=== PATIENT | male | born 1995 | race Caucasian/White ===

== ENCOUNTER 2022-04-25 18:12 | Emergency (ER) | payer OTHER, SELFPAY ==
[2022-04-25 18:30] VITALS: BP 139/107; PULSE 75; RESP 20; TEMP 37.1; O2SAT 100
--- NOTE | 2022-04-25 19:11 | ED.WOUNDLAC ---
HPI - Wound/Laceration General Chief Complaint: Wound/Laceration Stated Complaint: Cut off top portion of left middle finger Time Seen by Provider: 04/25/22 18:55 Source: patient Mode of arrival: ambulatory Limitations: no limitations History of Present Illness HPI narrative: 27-year-old male presents with skin/nail avulsion left middle finger. Cut himself at work. 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 Bleeding controlled on arrival. Range of motion distal neurovascularly intact. All systems reviewed and negative except as noted above. Related Data Home Medications Medication Instructions Recorded Confirmed No Home Medications 04/25/22 04/25/22 Allergies Allergy/AdvReac Type Severity Reaction Status Date / Time No Known Allergies Allergy Verified 04/25/22 18:36 Review of Systems Review of Systems: CONSTITUTIONAL: Denies fever, chills, or sweats. EYES: Denies visual changes, redness, or discharge. ENT: Denies rhinorrhea, congestion, sore throat, or otalgia. CARDIOVASCULAR: Denies chest pain, palpitations, or edema. RESPIRATORY: Denies cough or dyspnea. GASTROINTESTINAL: Denies abdominal pain, nausea, vomiting, or diarrhea. GENITOURINARY: Denies dysuria or hematuria. SKIN: Reports laceration left middle finger. MUSCULOSKELETAL: Denies back pain, joint pain, or myalgia. NEUROLOGIC: Denies headache, numbness, or weakness. PSYCHIATRIC: Denies anxiety or depression. All other systems reviewed are negative, except as documented in HPI. PMFSH Comments At time of signature, agree with nursing past medical, surgical, social and family history. There is no relevant family history pertinent to the presenting complaint. Exam Narrative: GENERAL: This is a well-nourished, well-developed patient, in no apparent distress. HEAD: normocephalic, atraumatic. EYES: PERRL. Sclera clear/white. Vision is grossly intact. EARS: External ears normal NOSE: External nose normal NECK: Neck supple, non-tender without lymphadenopathy, masses or thyromegaly. CARDIOVASCULAR: Regular rate and rhythm without murmurs, gallops, or rubs. RESPIRATORY: Clear to auscultation. Breath sounds equal bilaterally. No wheezes, rales, or rhonchi. SKIN: warm, Dry, with no suspicious lesions or rash, good texture and turgor. Partial nail, skin avulsion to left middle finger. Scant bleeding noted. NEURO: awake, alert, and oriented to person, place and time. There were no obvious focal neurologic abnormalities. EXTREMITIES: No joint tenderness, effusion, or edema noted. Extrem: Hand/finger images: 1. Skin/partial nail avulsion. Course Course Level of Care: Express Care Visit Vital Signs Vital signs: Vital Signs Temperature 37.1 C 04/25/22 18:30 Pulse Rate 75 04/25/22 18:30 Respiratory Rate 20 04/25/22 18:30 Blood Pressure 139/107 H 04/25/22 18:30 Pulse Oximetry 100 04/25/22 18:30 Oxygen Delivery Room Air 04/25/22 18:30 Temperature 37.1 C 04/25/22 18:30 Pulse Rate 75 04/25/22 18:30 Respiratory Rate 20 04/25/22 18:30 Blood Pressure 139/107 H 04/25/22 18:30 Pulse Oximetry 100 04/25/22 18:30 Oxygen Delivery Room Air 04/25/22 18:30 Reviewed Procedures Laceration Laceration 1: Date: 04/25/22 Time: 19:10 Site: hand Side (If applicable): left (Middle finger) Size (cm): 1 Description: other (Skin/partial nail avulsion) Local Anesthetic: none ====== Skin Level ====== ====== Subcutaneous Layer ====== ====== Muscle Layer ====== ====== Tendon Layer ====== Dressing: Surgicel, tube gauze. MDM - Wound/Laceration MDM Narrative Medical decision making narrative: Patient is aware of diagnosis, understands and agrees to treatment plan. Anticipatory guidance given. Patient agrees to follow-up as directed and is aware of reasons to seek care at the emergency department. Portions of this record may have been created with voice recognition [employer]
== END 2022-04-25 19:23 | disposition home or self-care (01) ==
PROVIDERS: Emergency Provider Nurse Practitioner Family
DX: S61.303A Unspecified open wound of left middle finger with damage to nail, initial encounter (principal); W45.8XXA Other foreign body or object entering through skin, initial encounter; Y99.0 Civilian activity done for income or pay
CPT/HCPCS: 99212; G0463

== ENCOUNTER 2024-07-24 10:37 | Emergency (ER) | payer OTHER, SELFPAY ==
--- NOTE | ~2024-07-24 | XR_ITS ---
EXAMINATION: XR chest 2V DATE: 07/24/2024 11:42 INDICATION: Cough and fever. TECHNIQUE: Frontal and lateral views of the chest were obtained. COMPARISON: None. FINDINGS: There is no pneumonia, pleural effusion, or pneumothorax. The heart size is normal. IMPRESSION: 1. No acute cardiopulmonary disease. Reviewed, dictated and finalized at location A. [facility]
--- OUTSIDE RECORDS SUMMARY | 2024-07-24 10:39 | XMS_ITS | Clinical Summary ---
Author Organization [facility] Address [facility] [place] [address] Care Team Providers Care Automatic Embroidery Machine Tender Name Role Phone Md, Generic Conversion MD Primary Care Provider Unavailable Allergies No known active allergies Medications No known medications Immunizations Name Administration Dates Next Due Tdap (Boostrix) 06/03/2019 Family History Medical History Relation Comments None Father None Mother Relation Status Comments Father Alive Mother Alive Social History Tobacco Use Types Packs/Day Years Used Date Smoking Tobacco: Never Smokeless Tobacco: Never Alcohol Use Standard Drinks/Week Comments No 0 (1 standard drink = 0.6 oz pur e alcohol) AUDIT-C Answer Date Recorded Frequency of Alcohol Consumption Never 06/03/2019 Average Number of Drinks Not on file 020 Frequency of Binge Drinking Not on file 05/19 Sex and Gender Information Value Date Recorded Sex Assigned at Not on file Legal Sex Male 11:17 PM CROP GRAIN OR LIVESTOCK FARM MANAGER Gender Identity Not on file Sexual Orientation Not on file Last Filed Vital Signs Vital Sign Reading Time Taken Comments Blood Pressure 136/81 06/10/2019 5:52 PM CROP GRAIN OR LIVESTOCK FARM MANAGER Pulse 57 06/10/2019 5:52 PM CROP GRAIN OR LIVESTOCK FARM MANAGER Temperature 36.2 C (97.2 F) 06/10/2019 5:52 PM CROP GRAIN OR LIVESTOCK FARM MANAGER Respiratory Rate 16 06/10/2019 5:52 PM CROP GRAIN OR LIVESTOCK FARM MANAGER Oxygen Saturation 98% 06/10/2019 5:52 PM CROP GRAIN OR LIVESTOCK FARM MANAGER Inhaled Oxygen Concentration - - Weight 81.6 kg (180 lb) 06/10/2019 5:52 PM CROP GRAIN OR LIVESTOCK FARM MANAGER Height 182.9 cm (6') 06/10/2019 5:52 PM CROP GRAIN OR LIVESTOCK FARM MANAGER Body Mass Index 24.41 06/10/2019 5:52 PM CROP GRAIN OR LIVESTOCK FARM MANAGER Plan of Treatment Health Maintenance Due Date Last Done Comments Annual Physical 1999 Hepatitis C 2014 Hepatitis B Vaccines (1 of 3 - 19+ 3-dose series) 2015 COVID-19 Vaccine (1 - 2023-2 5 season) 2024 Influenza Adult (#1) 2024 DTaP, Tdap and Td Vaccines ( 2 - Td or Tdap) 06/03/2029 06/03/2019 HPV Vaccines Aged Out No longer eligi ble based on patient's age to complete this topic Meningococcal B Vaccine Aged Out No l onger eligible based on patient's age to complete this topic Meningococcal Vaccine Aged Out No sushant coral eligible based on patient's age to complete this topic Pneumococcal Vaccine: Pediat rics (0 to 5 Years) and At-Risk Patients (6 to 64 Years) Aged Out No longer eligi ble based on patient's age to complete this topic RSV Immunizations Under 20 Months Aged Out No longer eligible based on patient's age to complete this topic Insurance [employer] Care Teams Automatic Embroidery Machine Tender Relationship Specialty Start Date End Date Paco Jordan MD PCP - General FAMILY MEDICINE SPORTS MEDICINE 06/03/19
--- OUTSIDE RECORDS SUMMARY | 2024-07-24 10:39 | XMS_ITS | Referral Summary ---
Author Organization [address] [address] Care Team Providers Care Alemite Operator Name Role Phone Unknown, Notinfile Primary Care Provider Unavail able Encounters Date Type Department Care Team Description 07/21/2024 3:00 PM RADIOLOGIC TECHNOLOGY TEACHER Office Visit [facility] Medical [facility] Care at [address] [address] Lolis Campuzano PA Influenza A (Primary Dx) 04/29/2024 11:45 AM RADIOLOGIC TECHNOLOGY TEACHER Office Visit [facility] Care at [address] [phone] Jeannie Ansari NP Sore throat (Primary Dx); Thrush; Acute non-recurrent frontal sinusitis; Nausea vomiting and diarrhea from Last 3 Months Allergies No known active allergies Medications benzonatate (TESSALON) 100 mg capsuleIndications :Cough Take 1 capsule (100 mg total) by mouth 3 (three) times a day as needed for cough 42 capsule 02/10/20 Active Additional Information Patient not taking.Reported on 07/21/2024 ondansetron ODT (ZOFRAN-ODT) 4 mg disintegrating tabletIndications: Nausea vomiting and diarrhea Take 1 tablet (4 mg total) by mouth every 8 (eight) hours as needed for nausea or vomiting 20 tablet 04/29/20 Active Additional Information Patient not taking.Reported on 07/21/2024 Active Problems Problem Noted Date Diagnosed Date 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 10/01/2012 Proteinuria 10/05/2010 Blood in urine 10/05/2010 Henoch-Schonlein purpura 10/05/2010 Social History Tobacco Use Types Packs/Day Years Used Date Smoking Tobacco: Never Sex and Gender Information Value Date Recorded Sex Assigned at Not on file Legal Sex Male 3:19 AM RADIOLOGIC TECHNOLOGY TEACHER Gender Identity Not on file Sexual Orientation Not on file Last Filed Vital Signs Vital Sign Reading Time Taken Comments Blood Pressure 152/85 07/21/2024 3:02 PM RADIOLOGIC TECHNOLOGY TEACHER Pulse 81 07/21/2024 3:02 PM RADIOLOGIC TECHNOLOGY TEACHER Temperature 37.1 C (98.7 F) 07/21/2024 3:02 PM RADIOLOGIC TECHNOLOGY TEACHER Respiratory Rate 16 07/21/2024 3:02 PM RADIOLOGIC TECHNOLOGY TEACHER Oxygen Saturation 95% 07/21/2024 3:02 PM RADIOLOGIC TECHNOLOGY TEACHER Inhaled Oxygen Concentration - - Weight 95.9 kg (211 lb 6.4 oz) 07/21/2024 3:02 P M RADIOLOGIC TECHNOLOGY TEACHER Height 182.9 cm (6' 0.01 ) 07/21/2024 3:02 PM CS T Body Mass Index 28.66 07/21/2024 3:02 PM RADIOLOGIC TECHNOLOGY TEACHER Plan of Treatment Not on file Procedures Procedure Name Priority Date/Time Associated Diagnosis Comments POC INFLUENZA A/B, COVID-19 ANTIGEN Routine 07/21/2024 3:25 PM RADIOLOGIC TECHNOLOGY TEACHER Influenza A POCT RAPID STREP Routine 07/21/2024 3:25 PM RADIOLOGIC TECHNOLOGY TEACHER Influenza A POCT RAPID STREP Routine 04/29/2024 12:0 8 PM RADIOLOGIC TECHNOLOGY TEACHER Sore throat from Last 3 Months Results * (ABNORMAL) POC Influenza A/B, COVID-19 antigen (07/21/2024 3:25 PM RADIOLOGIC TECHNOLOGY TEACHER) Influenza A Ag, POC Positive(A) Negative [facility] Influenza B Ag, POC Negative Negative [facility] COVID-19 Ag POC Presumptive Negative Presumptive Negative, Invalid [facility] Nasal 07/21/2024 3:25 PM RADIOLOGIC TECHNOLOGY TEACHER us Lolis GARZON POINT OF CARE TEST ORDER RADHA Final Result [facility] [place] [address], [facility] * POCT rapid strep A (07/21/2024 3:25 PM RADIOLOGIC TECHNOLOGY TEACHER) Rapid Strep A, POC Negative Negative [facility] Swab 07/21/2024 3:25 PM RADIOLOGIC TECHNOLOGY TEACHER Lolis GARZON POINT OF CARE TEST ORDER RADHA Final [facility] [address] * POCT rapid strep A (04/29/2024 12:08 PM RADIOLOGIC TECHNOLOGY TEACHER) Rapid Strep A, POC Negative Negative Swab 04/29/2024 12:0 8 PM RADIOLOGIC TECHNOLOGY TEACHER Jeannie Ansari NP POINT OF CARE TEST ORDERAB LES Final Result from Last 3 Months Additional Health Concerns Infection Onset Date Last Indicated Influenza, adult 07/21/2024 07/21/2024 Insurance [facility] CHOICE PLUS Care Teams Alemite Operator Relationship Specialty Start Date End Date Unknown, Notinfile PCP - General 02/10/24
--- OUTSIDE RECORDS SUMMARY | 2024-07-24 10:39 | XMS_ITS | Clinical Summary ---
Author Organization [facility] Address [address] [place] [phone] Care Team Providers Care Scrap Sorter Name Role Phone Unknown, Notinfile Primary Care Provider Unavail able Allergies No known active allergies Medications benzonatate [...] Blood in urine 10/05/2010 Henoch-Schonlein purpura 10/05/2010 Encounters Date Type Department Care Team Description 07/21/2024 3:00 PM PICKLE PROCESSOR Office Visit [facility] Care at [address] [phone] Lolis Campuzano PA Influenza A (Primary Dx) 04/29/2024 11:45 AM PICKLE PROCESSOR Office Visit [facility] Medical [facility] Care at [address] [phone] Jeannie Asnari NP Sore throat (Primary Dx); Thrush; Acute non-recurrent frontal sinusitis; Nausea vomiting and diarrhea from Last 3 Months Social History Tobacco Use Types Packs/Day Years Used Date Smoking Tobacco: Never Sex and Gender Information Value Date Recorded Sex Assigned at Not on file Legal Sex Male 3:19 AM PICKLE PROCESSOR Gender Identity Not on file Sexual Orientation Not on file Obstetrics History Last Filed Vital Signs Vital Sign Reading Time Taken Comments Blood Pressure 152/85 07/21/2024 3:02 PM PICKLE PROCESSOR Pulse 81 07/21/2024 3:02 PM PICKLE PROCESSOR Temperature 37.1 C (98.7 F) 07/21/2024 3:02 PM PICKLE PROCESSOR Respiratory Rate 16 07/21/2024 3:02 PM PICKLE PROCESSOR Oxygen Saturation 95% 07/21/2024 3:02 PM PICKLE PROCESSOR Inhaled Oxygen Concentration - - Weight 95.9 kg (211 lb 6.4 oz) 07/21/2024 3:02 P M PICKLE PROCESSOR Height 182.9 cm (6' 0.01 ) 07/21/2024 3:02 PM CS T Body Mass Index 28.66 07/21/2024 3:02 PM PICKLE PROCESSOR Plan of Treatment Health Maintenance Due Date Last Done Comments Depression Screening 1996 Hepatitis C Screening 1996 Varicella Vaccines (1 of 2 - 13+ 2-dose series) 2009 Regular Well Visit/Exam 18-64 2014 Pneumococcal vaccine <65 (1 of 2 - PCV) 2015 Zoster Vaccine (1 of 2) 2015 Influenza Vaccine (#1) 2024 DTaP/Tdap/Td Vaccine (6 - Td or Tdap) 06/03/2029 06/03/2019, 07/19/1997, 1996, Additional history exists Hepatitis B Screening Completed 1996 , 1996, 1996 HPV Vaccines Aged Out No longer eligi ble based on patient's age to complete this topic Procedures Procedure Name Priority Date/Time Associated Diagnosis Comments POC INFLUENZA A/B, COVID-19 ANTIGEN Routine 07/21/2024 3:25 PM PICKLE PROCESSOR Influenza A POCT RAPID STREP Routine 07/21/2024 3:25 PM PICKLE PROCESSOR Influenza A POCT RAPID STREP Routine 04/29/2024 12:0 8 PM PICKLE PROCESSOR Sore throat from Last 3 Months Results * (ABNORMAL) POC Influenza A/B, COVID-19 antigen (07/21/2024 3:25 PM PICKLE PROCESSOR) Influenza A Ag, POC Positive(A) Negative [facility] Influenza B Ag, POC Negative Negative [facility] COVID-19 Ag POC Presumptive Negative Presumptive Negative, Invalid [facility] Nasal 07/21/2024 3:25 PM PICKLE PROCESSOR Lolis GAROZN POINT OF CARE TEST ORDER RADHA Final Result Performing Organization Address [facility] de Phone Number [address] * POCT rapid strep A (07/21/2024 3:25 PM PICKLE PROCESSOR) Rapid Strep A, POC Negative Negative [facility] Swab 07/21/2024 3:25 PM PICKLE PROCESSOR Lolis GARZON POINT OF CARE TEST ORDER RADHA Final Result Performing Organization Address [facility] Phone Number [address] * POCT rapid strep A (04/29/2024 12:08 PM PICKLE PROCESSOR) Pathologist [facility] Rapid Strep A, POC Negative Negative Swab 04/29/2024 12:0 8 PM PICKLE PROCESSOR Jeannie Ansari ACCREDITED PHARMACY TECHNICIAN POINT OF CARE TEST ORDERAB LES Final Result from Last 3 Months Additional Health Concerns Infection Onset Date Last Indicated Influenza, adult 07/21/2024 07/21/2024 Insurance [facility] H[facility]PPO Address: [facility] [id number] [place] [address] Care Teams Scrap Sorter Relationship Specialty Start Date End Date Unknown, Notinfile PCP - General 02/10/24
[2024-07-24 10:40] VITALS: BP 143/95; PULSE 77; RESP 18; TEMP 36.2; O2SAT 99
--- OUTSIDE RECORDS SUMMARY | 2024-07-24 11:30 | XMS_ITS | Referral Summary ---
Author Organization [address] [address] Care Team Providers Care Drapery Seamstress Name Role Phone Unknown, Notinfile Primary Care Provider Unavail able Encounters Date Type Department Care Team Description 07/21/2024 3:00 PM TRIAL MANAGER Office Visit [facility] Medical [facility] Care at [address] [phone] Lolis Campuzano PA Influenza A (Primary Dx) 04/29/2024 11:45 AM TRIAL MANAGER Office Visit [facility] Care at [address] [phone] Jeannie Ansari NP Sore throat [...] on file Legal Sex Male 3:19 AM TRIAL MANAGER Gender Identity Not on file Sexual Orientation Not on file Last Filed Vital Signs Vital Sign Reading Time Taken Comments Blood Pressure 152/85 07/21/2024 3:02 PM TRIAL MANAGER Pulse 81 07/21/2024 3:02 PM TRIAL MANAGER Temperature 37.1 C (98.7 F) 07/21/2024 3:02 PM TRIAL MANAGER Respiratory Rate 16 07/21/2024 3:02 PM TRIAL MANAGER Oxygen Saturation 95% 07/21/2024 3:02 PM TRIAL MANAGER Inhaled Oxygen Concentration - - Weight 95.9 kg (211 lb 6.4 oz) 07/21/2024 3:02 P M TRIAL MANAGER Height 182.9 cm (6' 0.01 ) 07/21/2024 3:02 PM CS T Body Mass Index 28.66 07/21/2024 3:02 PM TRIAL MANAGER Plan of Treatment Not on file Procedures Procedure Name Priority Date/Time Associated Diagnosis Comments POC INFLUENZA A/B, COVID-19 ANTIGEN Routine 07/21/2024 3:25 PM TRIAL MANAGER Influenza A POCT RAPID STREP Routine 07/21/2024 3:25 PM TRIAL MANAGER Influenza A POCT RAPID STREP Routine 04/29/2024 12:0 8 PM TRIAL MANAGER Sore throat from Last 3 Months Results * (ABNORMAL) POC Influenza A/B, COVID-19 antigen (07/21/2024 3:25 PM TRIAL MANAGER) Influenza A Ag, POC Positive(A) Negative [facility] Influenza B Ag, POC Negative Negative [facility] COVID-19 Ag POC Presumptive Negative Presumptive Negative, Invalid [facility] Nasal 07/21/2024 3:25 PM TRIAL MANAGER us Lolis GARZON POINT OF CARE TEST ORDER RADHA Final Result [facility] [place] [address], [facility] * POCT rapid strep A (07/21/2024 3:25 PM TRIAL MANAGER) Rapid Strep A, POC Negative Negative [facility] Swab 07/21/2024 3:25 PM TRIAL MANAGER Lolis GARZON POINT OF CARE TEST ORDER RADHA Final Result [facility] [address] * POCT rapid strep A (04/29/2024 12:08 PM TRIAL MANAGER) Rapid Strep A, POC Negative Negative Swab 04/29/2024 12:0 8 PM TRIAL MANAGER Jeannie Ansari NP POINT OF CARE TEST ORDERAB LES Final Result from Last 3 Months Additional Health Concerns Infection Onset Date Last Indicated Influenza, adult 07/21/2024 07/21/2024 Insurance [facility] CHOICE PLUS Care Teams Drapery Seamstress Relationship Specialty Start Date End Date Unknown, Notinfile PCP - General 02/10/24
--- OUTSIDE RECORDS SUMMARY | 2024-07-24 11:30 | XMS_ITS | Clinical Summary ---
Author Organization [facility] Address [address] [place] [phone] Care Team Providers Care Chute Feeder Name Role Phone Unknown, Notinfile Primary Care [...] Department Care Team Description 07/21/2024 3:00 PM SUPERVISOR DATA PROCESSING Office Visit [facility] Medical [facility]venient Care at [address] [phone] Lolis Campuzano PA Influenza A (Primary Dx) 04/29/2024 11:45 AM SUPERVISOR DATA PROCESSING Office Visit [facility] Medical [facility] Convenient Care at [address] [phone] Jeannie Ansari NP Sore throat (Primary Dx); Thrush; Acute non-recurrent frontal sinusitis; Nausea vomiting and diarrhea from Last 3 Months Social History Tobacco Use Types Packs/Day Years Used Date Smoking Tobacco: Never Sex and Gender Information Value Date Recorded Sex Assigned at Not on file Legal Sex Male 3:19 AM SUPERVISOR DATA PROCESSING Gender Identity Not on file Sexual Orientation Not on file Obstetrics History Last Filed Vital Signs Vital Sign Reading Time Taken Comments Blood Pressure 152/85 07/21/2024 3:02 PM SUPERVISOR DATA PROCESSING Pulse 81 07/21/2024 3:02 PM SUPERVISOR DATA PROCESSING Temperature 37.1 C (98.7 F) 07/21/2024 3:02 PM SUPERVISOR DATA PROCESSING Respiratory Rate 16 07/21/2024 3:02 PM SUPERVISOR DATA PROCESSING Oxygen Saturation 95% 07/21/2024 3:02 PM SUPERVISOR DATA PROCESSING Inhaled Oxygen Concentration - - Weight 95.9 kg (211 lb 6.4 oz) 07/21/2024 3:02 P M SUPERVISOR DATA PROCESSING Height 182.9 cm (6' 0.01 ) 07/21/2024 3:02 PM CS T Body Mass Index 28.66 07/21/2024 3:02 PM SUPERVISOR DATA PROCESSING Plan of Treatment Health Maintenance Due Date [...] A/B, COVID-19 ANTIGEN Routine 07/21/2024 3:25 PM SUPERVISOR DATA PROCESSING Influenza A POCT RAPID STREP Routine 07/21/2024 3:25 PM SUPERVISOR DATA PROCESSING Influenza A POCT RAPID STREP Routine 04/29/2024 12:0 8 PM SUPERVISOR DATA PROCESSING Sore throat from Last 3 Months Results * (ABNORMAL) POC Influenza A/B, COVID-19 antigen (07/21/2024 3:25 PM SUPERVISOR DATA PROCESSING) Influenza A Ag, POC Positive(A) Negative [facility] Influenza B Ag, POC Negative Negative [facility] COVID-19 Ag POC Presumptive Negative Presumptive Negative, Invalid [facility] Nasal 07/21/2024 3:25 PM SUPERVISOR DATA PROCESSING Lolis GARZON POINT OF CARE TEST ORDER RADHA Final Result Performing Organization Address [facility] de Phone Number [address] * POCT rapid strep A (07/21/2024 3:25 PM SUPERVISOR DATA PROCESSING) Rapid Strep A, POC Negative Negative [facility] Swab 07/21/2024 3:25 PM SUPERVISOR DATA PROCESSING Lolis GARZON POINT OF CARE TEST ORDER RADHA Final Result Performing Organization Address [facility] Phone Number [address] * POCT rapid strep A (04/29/2024 12:08 PM SUPERVISOR DATA PROCESSING) Pathologist [facility] Rapid Strep A, POC Negative Negative Swab 04/29/2024 12:0 8 PM SUPERVISOR DATA PROCESSING Jeannie Ansari SANDWICH BOARD CARRIER POINT OF CARE TEST ORDERAB LES Final Result from Last 3 Months Additional Health Concerns Infection Onset Date Last Indicated Influenza, adult 07/21/2024 07/21/2024 Insurance [facility] CHOICE PLUS [facility] HMO/PPO Address: [facility] [id number] [place] [address] Care Teams Chute Feeder Relationship Specialty Start Date End Date Unknown, Notinfile PCP - General 02/10/24
--- OUTSIDE RECORDS SUMMARY | 2024-07-24 11:30 | XMS_ITS | Clinical Summary ---
Author Organization [facility] Address [facility] [place] [address] Care Team Providers Care Concrete Plant Laborer Name Role Phone Md, Generic Conversion MD [...] on file Legal Sex Male 11:17 PM STATISTICAL MACHINE MECHANIC Gender Identity Not on file Sexual Orientation Not on file Last Filed Vital Signs Vital Sign Reading Time Taken Comments Blood Pressure 136/81 06/10/2019 5:52 PM STATISTICAL MACHINE MECHANIC Pulse 57 06/10/2019 5:52 PM STATISTICAL MACHINE MECHANIC Temperature 36.2 C (97.2 F) 06/10/2019 5:52 PM STATISTICAL MACHINE MECHANIC Respiratory Rate 16 06/10/2019 5:52 PM STATISTICAL MACHINE MECHANIC Oxygen Saturation 98% 06/10/2019 5:52 PM STATISTICAL MACHINE MECHANIC Inhaled Oxygen Concentration - - Weight 81.6 kg (180 lb) 06/10/2019 5:52 PM STATISTICAL MACHINE MECHANIC Height 182.9 cm (6') 06/10/2019 5:52 PM STATISTICAL MACHINE MECHANIC Body Mass Index 24.41 06/10/2019 5:52 PM STATISTICAL MACHINE MECHANIC Plan of Treatment Health Maintenance Due Date [...] Insurance [employer] Care Teams Concrete Plant Laborer Relationship Specialty Start Date End Date Paco Jordan MD PCP - General FAMILY MEDICINE SPORTS MEDICINE 06/03/19
[2024-07-24] MEDS: SODIUM CHLORIDE 0.9% IV 1,000 ML 999 ML IV CONT (11:56)
[2024-07-24] MEDS: ONDANSETRON INJ 4 MG/2 ML VIAL IV PUSH (11:56)
[2024-07-24 12:05] LABS: Basophils Percent Auto 0.8 % (0.2-1.2); Hematocrit 51.2 % (42.0-52.0); Hemoglobin 17.4 g/dL (14.0-18.0); Immature Granulocyte Absolute 0.02 K/mm3 (0.00-0.031); Immature Granulocyte Percent A 0.5 % (0-0.5); Lymphocytes Percent Auto 38.3 % (18.3-44.2); Mean Corpuscular Hemoglobin 29.1 pg (26-34); Mean Corpuscular Volume 85.8 fl (80-100); Monocytes Absolute Auto 0.7 K/mm3 (0.1-0.6); Monocytes Percent Auto 19.7 % (2.6-8.5); Neutrophils Absolute Auto 1.5 K/mm3 (1.3-6.7); Neutrophils Percent Auto 40.7 % (45.5-73.1); Platelet Count Result 185 k/mm3 (150-375); Red Blood Count 5.97 M/mm3 (4.6-6.20); Red Cell Distribution Width 12.5 % (11.5-14.5); White Blood Count 3.7 K/mm3 (4.5-10.0)
--- NOTE | 2024-07-24 12:06 | ED.GENADULT ---
HPI - General Adult General Chief complaint: Unspecified Stated complaint: Flu A not getting better Time Seen by Provider: 07/24/24 11:11 Source: patient and RN notes reviewed Mode of arrival: ambulatory Limitations: no limitations History of Present Illness HPI narrative: This is a 29 year old male who presents for evaluation of nausea, vomiting and diarrhea. He states he developed symptoms of the flu on Friday. He reports initially developing a sore throat . He later developed cough, nausea, vomiting, and diarrhea. He was evaluation on Friday at outside facility where he was diagnosed with influenza. He states that he does not feel any better. He states he has continued to have vomiting and diarrhea. His fever has resolved. He denies chest pain or shortness of breath. He also reports tingling to his toes. Related Data Allergies Allergy/AdvReac Type Severity Reaction Status Date / Time No Known Allergies Allergy Verified 07/24/24 10:48 Review of Systems Constitutional: Constitutional: Reports body ache(s) and Reports chills PMFSH Past Medical History Medical History (Updated 07/24/24 @ 13:14 by Samina Casas MD) Patient denies medical problems Surgical History Surgical History (Updated 07/24/24 @ 13:12 by Samina Casas MD) No pertinent past surgical history Social History Social History (Updated 07/24/24 @ 13:12 by Samina Casas MD) Smoking status: Never smoker Alcohol use details: socially Substance use type: marijuana Exam Narrative: GENERAL: Well-appearing, well-nourished, and in no acute distress. HEAD: Normocephalic, atraumatic EYES: PERRLA and EOMI, conjunctiva clear without discharge EARS: TM's clear bilaterally without erythema or dullness NOSE: Nares clear, no rhinorrhea or epistaxis THROAT:Mucous membranes moist, Oropharynx normal without erythema, exudate, peritonsillar swelling or fluctuance NECK: Supple, without lymphadenopathy or mass RESPIRATORY: No respiratory distress, Airway patent, Respirations non-labored, Clear to auscultation without rales, rhonchi or wheeze HEART: Regular rate and rhythm. No murmur heard. Normal peripheral pulses. ABDOMEN: Soft, nontender, nondistended, normal active bowel sounds. No masses. No rebound or guarding, No organomegaly. EXTREMITIES: No edema, normal strength with full range of motion. SKIN: Warm, dry, normal color without rash NEURO: Alert and oriented x3. CN 2-12 grossly intact. No focal deficits. PSYCH: Normal mood and affect. Course Reevaluation(s) Reevaluation #1: PAtient states he feels better after zofran and IV fluids. He has no other concerns. He will be prescribed zofran for antiemetic. No pneumonia on xray. no sign of severe dehydration. Date: 07/24/24 Time: 13:12 Vital Signs Vital signs: Vital Signs Temperature 97.1 F L 07/24/24 10:40 Pulse Rate 77 07/24/24 10:40 Respiratory Rate 18 07/24/24 10:40 Blood Pressure 143/95 H 07/24/24 10:40 Pulse Oximetry 99 07/24/24 10:40 Oxygen Delivery Room Air 07/24/24 10:40 Temperature 97.6 F 07/24/24 13:36 Pulse Rate 69 07/24/24 13:36 Respiratory Rate 20 07/24/24 13:36 Blood Pressure 140/86 07/24/24 13:36 Pulse Oximetry 98 07/24/24 13:36 Oxygen Delivery Room Air 07/24/24 10:40 Medical Decision Making Vital Signs Vital Signs: Vital Signs Temperature 97.1 F L 07/24/24 10:40 Pulse Rate 77 07/24/24 10:40 Respiratory Rate 18 07/24/24 10:40 Blood Pressure 143/95 H 07/24/24 10:40 Pulse Oximetry 99 07/24/24 10:40 Oxygen Delivery Room Air 07/24/24 10:40 Temperature 97.6 F 07/24/24 13:36 Pulse Rate 69 07/24/24 13:36 Respiratory Rate 20 07/24/24 13:36 Blood Pressure 140/86 07/24/24 13:36 Pulse Oximetry 98 07/24/24 13:36 Oxygen Delivery Room Air 07/24/24 10:40 Lab Data Lab results reviewed: Yes I reviewed the patient's lab results. 07/24/24 11:57 07/24/24 11:57 Labs: Lab Results 07/24/24 Range/Units 11:57 WBC 3.7 L (4.5-10.0) K/mm3 RBC 5.97 (4.6-6.20) M/mm3 Hgb 17.4 (14.0-18.0) g/dL Hct 51.2 (42.0-52.0) % MCV 85.8 (80-100) fl MCH 29.1 (26-34) pg MCHC 34.0 (32-36) g/dl RDW 12.5 (11.5-14.5) % Plt Count 185 (150-375) k/mm3 MPV 11.0 H (7.4-10.4) fl Immature Gran % (Auto) 0.5 (0-0.5) % Neut % (Auto) 40.7 L (45.5-73.1) % Lymph % (Auto) 38.3 (18.3-44.2) % [place] % (Auto) 19.7 H (2.6-8.5) % Eos % (Auto) 0.0 (0-4.4) % Baso % (Auto) 0.8 (0.2-1.2) % Lymph # (Auto) 1.40 (0.9-3.2) K/mm3 [place] # (Auto) 0.7 H (0.1-0.6) K/mm3 Eos # (Auto) 0.0 (0-0.3) K/mm3 Baso # (Auto) 0.0 (0.0-0.1) K/mm3 Abs Immat Gran (auto) 0.02 (0.00-0.031) K/mm3 Absolute Neuts (auto) 1.5 (1.3-6.7) K/mm3 Absolute Nucleated RBC 0.000 (0.0-0.012) K/mm3 Nucleated RBC % 0.0 (0.0-0.2) % Sodium 138 (137-145) mmol/L Potassium 4.4 (3.4-5.0) mmol/L Chloride 99 (98-107) mmol/L Carbon Dioxide 25 (22-30) mmol/L Anion Gap 14 H (4-12) mmol/L BUN 16 (9-20) mg/dL Creatinine 1.09 (0.7-1.3) mg/dL Estim Creat Clear Calc 98 ml/min Estimated GFR > 60 (59 - ) Glucose 95 (65-110) mg/dL Calcium 9.1 (8.4-10.2) mg/dL Total Bilirubin 0.6 (0.2-1.3) mg/dL AST 59 (17-59) U/L ALT 66 H (6-50) U/L Alkaline Phosphatase 123 (38-126) U/L Total Protein 8.0 (6.3-8.2) g/dL Albumin 4.8 (3.5-5.1) g/dL Urine Color Yellow (Yellow) Urine Appearance Cloudy H (Clear) Urine pH 6.0 (5.0-9.0) Ur Specific [place] 1.024 (1.001-1.035) Urine Protein 2+ H (Negative) mg/dL Urine Glucose (UA) Negative (Negative) mg/dL Urine Ketones Trace H (Negative) mg/dL Ur Blood (Man) Negative (Negative) Urine Nitrate Negative (Negative) Urine Bilirubin Negative (Negative) Urine Urobilinogen 0.2 (<2.0) mg/dL Add Ur Microanalysis Reviewed Leukocyte Esterase Rfl Negative (Negative) BING/UL Urine RBC 0-2 (0-2) /hpf Urine WBC 0-5 (0-3) /hpf Ur Squamous Epith Cells Few (Few) /hpf Urine Bacteria None seen /hpf Urine Casts 11-20 Granular Casts Present (None) /lpf Imaging Data Radiologist's impression: ITS Impressions Chest X-Ray 07/24/24 11:45 IMPRESSION: 1. No acute cardiopulmonary disease. Discharge Plan Discharge Clinical Impression: Influenza, Acute viral syndrome, Dehydration Patient Disposition: Home, Self-Care Condition: Stable Instructions: Antibiotic Form, Acute Diarrhea (ED), Viral Syndrome (ED) Patient Language: Uzbek Prescriptions: New ondansetron 4 mg tablet,disintegrating 4 mg PO Q6H PRN (Reason: nausea and vomiting) Qty: 14 0RF Follow-up/Referrals: PHYSICIAN,[employer] [Primary Care Provider] - Ashwin Hilton MD [Physician] -
[2024-07-24 12:22] LABS: Alanine Aminotransferase 66 U/L (6-50); Albumin Level 4.8 g/dL (3.5-5.1); Alkaline Phosphatase 123 U/L (38-126); Anion Gap 14 mmol/L (4-12); Aspartate Amino Transferase 59 U/L (17-59); Bilirubin,Total 0.6 mg/dL (0.2-1.3); Blood Urea Nitrogen 16 mg/dL (9-20); Calcium 9.1 mg/dL (8.4-10.2); Carbon Dioxide 25 mmol/L (22-30); Chloride 99 mmol/L (98-107); Estimated CRCL calculation 98 ml/min; Estimated Glomerular Filt Rate > 60; Glucose 95 mg/dL (65-110); Potassium 4.4 mmol/L (3.4-5.0); Sodium 138 mmol/L (137-145)
[2024-07-24 13:02] LABS: Add Urine Microscopic? YES; Appearance Urine Cloudy (Clear); Bacteria Urine None Seen /hpf; Bilirubin Urine Negative (Negative); Blood Urine Negative (Negative); Color Urine Yellow (Yellow); Glucose Urine UA Negative (Negative); Granular Casts Urine Present /lpf; Ketones Urine Trace mg/dL (Negative); Leukocyte Esterase Ur Negative LEU/UL (Negative); Need Manual Microscopic Reviewed; Nitrate Urine Negative (Negative); Protein Urine 2+ mg/dL (Negative); RBC Urine 0-2 /hpf (0-2); Specific Grav Ur 1.024 (1.001-1.035); Squamous Epithelial Cell Urine Few /hpf (Few); Urobilinogen Urine 0.2 mg/dL (<2.0); WBC Urine 0-5 /hpf (0-3)
[2024-07-24 13:36] VITALS: BP 140/86; PULSE 69; RESP 20; TEMP 36.4; O2SAT 98
== END 2024-07-24 13:38 | disposition home or self-care (01) ==
PROVIDERS: Emergency Provider General Practice
DX: J11.1 Influenza due to unidentified influenza virus with other respiratory manifestations (principal); E86.0 Dehydration
CPT/HCPCS: 36415; 71046; 80053; 81001; 85025; 96361; 96374; 99284; J2405; J7030

== ENCOUNTER 2025-01-26 08:16 | Observation (INO) | payer OTHER, SELFPAY ==
--- NOTE | ~2025-01-26 | MR_ITS ---
EXAMINATION: MR pelvis wo/w con DATE: 01/27/2025 09:21 INDICATION: Left buttock mass TECHNIQUE: Magnetic resonance imaging (MRI) of the pelvis was performed without and with 20 mL Multihance intravenous contrast. Full-field sequences of the pelvis included axial and coronal T2-weighted SS FSE, coronal 2D FIESTA, axial T1-weighted FSPGR, axial dual-echo T1-weighted FSPGR and axial T1 weighted LAVA. Postcontrast sequences included a time course axial T1-weighted LAVA with full- field of view of the pelvis. COMPARISON: CT dated 01/26/2025 FINDINGS: 13.6 x 7.3 x 6.6 cm fusiform enhancing mass within the left gluteus lela muscle belly position at the inferior left buttock. There are small cystic regions within the mass. Musculature of the pelvis and visualized proximal thighs appears otherwise normal and symmetric. Bones are unremarkable with no rmal marrow signal throughout. Bladder prostate and visualized portions of bowels including the appendix are normal. No free fluid in the pelvis. No pathologically enlarged pelvic or inguinal lymphadenopathy. IMPRESSION: 1. 13.6 x 7.3 x 6.6 cm heterogeneously enhancing intramuscular mass within the left gluteus lela muscle belly at the inferior left buttock consistent with neoplasm, highly concerning for malignancy although differential would include benign neoplasm such as schwannoma or peripheral nerve sheath tumor. Recommend orthopedic oncology consultation Reviewed, dictated and finalized at location A.
--- NOTE | ~2025-01-26 | CT_ITS ---
Examination: CTA LE LT Clinical History: lower buttock pain and swelling x2 weeks Technique: Helical images lung bases to feet IV contrast information are not listed in PACS Coronal, sagittal reformats. Multiplanar MIPS CT images acquired with automatic exposure control for dose reduction DLP: 715 mGy-cm Comparison: None Findings: CTA Findings: Common iliac arteries: Patent. External iliac arteries: Patent. Hypogastrics: Patent. CFAs: Patent. SFAs: Patent. Profundas: Patent. Popliteal arteries: Patent. Runoff: Three-vessel runoff bilaterally. Although distal portions poorly seen. Non-CTA findings: No acute abnormality within visualized lower abdomen and pelvis. Large heterogeneous lesion left gluteus lela with patchy peripheral enhancement, central hypodensity, and bright enhancement and/or extravasation inferiorly. Findings discussed via telephone by myself with Terell Montero APRN, at 10:19 AM central time. IMPRESSION: 1. Left gluteus muscle large lesion worrisome for mass, hematoma considered less likely but possible. 2. Active bleed along inferior margin not excluded, though felt to be peripheral soft tissue enhancement. 3. No acute arterial abnormality left leg. Reviewed, dictated and finalized at location R. IMPRESSION: 1. Left gluteus muscle large lesion worrisome for mass, hematoma considered le ss likely but possible. 2. Active bleed along inferior margin not excluded, though felt to be peripher al soft tissue enhancement. 3. No acute arterial abnormality left leg.
[2025-01-26 08:17] VITALS: BP 133/79; PULSE 84; RESP 16; TEMP 36.3; O2SAT 100
--- OUTSIDE RECORDS SUMMARY | 2025-01-26 08:40 | XMS_ITS | Clinical Summary ---
Author Organization [address] [address] Care Team Providers Care Dry Cans Operator Name Role Phone Unknown, Notinfile Primary Care Provider Unavail able Allergies No known active allergies Medications benzonatate (TESSALON) 100 mg capsuleIndications :Cough Take 1 capsule (100 mg total) by mouth 3 (three) times a day as needed for cough 42 capsule 02/10/20 Active Additional Information Patient not taking.Reported on 12/10/2024 ondansetron ODT (ZOFRAN-ODT) 4 mg disintegrating tabletIndications: Nausea vomiting and diarrhea Take 1 tablet (4 mg total) by mouth every 8 (eight) hours as needed for nausea or vomiting 20 tablet 04/29/20 Active Additional Information Patient not taking.Reported on 12/10/2024 Active Problems Problem Noted Date Diagnosed Date 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 10/01/2012 Proteinuria 10/05/2010 Blood in urine 10/05/2010 Henoch-Schonlein purpura 10/05/2010 Encounters Date Type Department Care Team Description 12/10/2024 5:45 PM CDT Office Visit [facility] Care at [address] [address] Jeannie Ansari NP Tick bite of right upper back excluding scapular region, initial encounter (Primary Dx) from Last 3 Months Social History Tobacco Use Types Packs/Day Years Used Date Smoking Tobacco: Never Sex and Gender Information Value Date Recorded Sex Assigned at Not on file 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 Gender Identity Not on file Sexual Orientation Not on file Obstetrics History Last Filed Vital Signs Vital Sign Reading Time Taken Comments Blood Pressure 139/87 12/10/2024 5:34 PM CDT Pulse 91 12/10/2024 5:34 PM CDT Temperature 37.1 C (98.7 F) 12/10/2024 5:34 PM CDT Respiratory Rate 22 12/10/2024 5:34 PM CDT Oxygen Saturation 99% 12/10/2024 5:34 PM CDT Inhaled Oxygen Concentration - - Weight 95.7 kg (211 lb) 12/10/2024 5:34 PM CDT Height 182.9 cm (6') 12/10/2024 5:34 PM CDT Body Mass Index 28.62 12/10/2024 5:34 PM CDT Plan of Treatment Health Maintenance Due Date Last Done Comments Depression Screening 1996 Hepatitis C Screening 1996 Varicella Vaccines (1 of 2 - 13+ 2-dose series) 2009 Regular Well Visit/Exam 18-64 2014 Pneumococcal vaccine <65 (1 of 2 - PCV) 2015 Zoster Vaccine (1 of 2) 2015 HPV Vaccines (1 - 3-dose SCD M series) 2023 Influenza Vaccine (#1) 2025 DTaP/Tdap/Td Vaccine (6 - Td or Tdap) 06/03/2029 06/03/2019, 07/19/1997, 1996, Additional history exists Hepatitis B Screening Completed 1996 , 1996, 1996 Insurance [facility] CHOICE PLUS [facility] HMO/PPO Address: [facility] [address] [place] [address] Care Teams Dry Cans Operator Relationship Specialty Start Date End Date Unknown, Notinfile PCP - General 02/10/24
[2025-01-26 09:50] LABS: Hematocrit 41.5 % (42.0-52.0); Hemoglobin 13.2 g/dL (14.0-18.0); Immature Granulocyte Percent A 0.4 % (0-0.5); Lymphocytes Absolute Auto 2.10 K/mm3 (0.9-3.2); Mean Corpuscular HGB Conc 31.8 g/dl (32-36); Mean Corpuscular Hemoglobin 28.3 pg (26-34); Mean Corpuscular Volume 88.9 fl (80-100); Nucleated Red Blood Cells Absolute Auto 0.000 K/mm3 (0.0-0.012); Nucleated Red Blood Cells Perc 0.0 % (0.0-0.2); Platelet Count Result 322 k/mm3 (150-375); Red Blood Count 4.67 M/mm3 (4.6-6.20); White Blood Count 9.4 K/mm3 (4.5-10.0)
[2025-01-26 09:58] LABS: Estimated CRCL calculation 118 ml/min; Estimated Glomerular Filt Rate > 60
[2025-01-26 10:01] LABS: Alanine Aminotransferase 26 U/L (6-50); Albumin Level 4.1 g/dL (3.5-5.1); Alkaline Phosphatase 119 U/L (38-126); Anion Gap 6 mmol/L (4-12); Aspartate Amino Transferase 29 U/L (17-59); Bilirubin,Total 0.2 mg/dL (0.2-1.3); Blood Urea Nitrogen 7 mg/dL (9-20); Calcium 8.8 mg/dL (8.4-10.2); Carbon Dioxide 28 mmol/L (22-30); Chloride 104 mmol/L (98-107); Creatine Kinase 97 U/L (55-170); Estimated CRCL calculation 131 ml/min; Estimated Glomerular Filt Rate > 60; Glucose 107 mg/dL (65-110); Potassium 4.3 mmol/L (3.4-5.0); Sodium 138 mmol/L (137-145); Total Protein 7.3 g/dL (6.3-8.2)
--- OUTSIDE RECORDS SUMMARY | 2025-01-26 10:02 | XMS_ITS | Clinical Summary ---
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 CHOICE PLUS Care Teams Supervisory Historian Relationship Specialty Start Date End Date Unknown, Notinfile PCP - General 02/10/24
--- OUTSIDE RECORDS SUMMARY | 2025-01-26 10:02 | XMS_ITS | Clinical Summary ---
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 Gender Identity Not on file Sexual Orientation Not on file Last Filed Vital Signs Vital Sign Reading Time Taken Comments Blood Pressure 136/81 06/10/2019 5:52 PM FIRE OBSERVER Pulse 57 06/10/2019 5:52 PM FIRE OBSERVER Temperature 36.2 C (97.2 F) 06/10/2019 5:52 PM FIRE OBSERVER Respiratory Rate 16 06/10/2019 5:52 PM FIRE OBSERVER Oxygen Saturation 98% 06/10/2019 5:52 PM FIRE OBSERVER Inhaled Oxygen Concentration - - Weight 81.6 kg (180 lb) 06/10/2019 5:52 PM FIRE OBSERVER Height 182.9 cm (6') 06/10/2019 5:52 PM FIRE OBSERVER Body Mass Index 24.41 06/10/2019 5:52 PM FIRE OBSERVER Plan of Treatment Health Maintenance Due Date Last Done Comments Annual Physical 1999 Hepatitis C 2014 Hepatitis B Vaccines (1 of 3 - 19+ 3-dose series) 2015 HPV Vaccines (1 - 3-dose SCD M series) 2023 COVID-19 Vaccine (1 - 2023-2 5 season) 2025 DTaP, Tdap and Td Vaccines ( 2 - Td or Tdap) 06/03/2029 06/03/2019 Meningococcal B Vaccine Aged Out No l onger eligible based on patient's age to complete this topic Meningococcal Vaccine Aged Out No sushant coral eligible based on patient's age to complete this topic Pneumococcal Vaccine: Pediat rics (0 to 5 Years) and At-Risk Patients (6 to 49 Years) Aged Out No longer eligi ble based on patient's age to complete this topic RSV Immunizations Under 20 Months Aged Out No longer eligible based on patient's age to complete this topic Insurance [employer] Care Teams Entertainment Agent Relationship Specialty Start Date End Date Paco Jordan MD PCP - General [facility]ILY [facility]IC[facility] SPORTS MEDICINE 06/03/19
--- NOTE | 2025-01-26 10:13 | ED_ITS ---
HPI - Extremity Injury (Lower) General Chief Complaint: Extremity Injury, Lower Stated Complaint: sciatica? Time Seen by Provider: 01/26/25 09:11 Source: patient and RN notes reviewed Mode of arrival: ambulatory Limitations: no limitations History of Present Illness HPI Narrative: 29-year-old male presents [facility] complaining of left lower buttocks pain for approximately 2 weeks. Patient said today's developed shooting pain down his left leg. Patient denies any injuries or falls to his left bottom. Patient reports feeling a firm mass to his left lower buttocks. Patient denies any back pain, redness, swelling, drainage, fevers, bites, chills, nausea vomiting,. Patient tried to get this workup done outpatient through his PCP but his insurance declined imaging. Patient denies any significant past medical history. Related Data Allergies Allergy/AdvReac Type Severity Reaction Status Date / Time No Known Allergies Allergy Verified 01/26/25 13:06 Review of Systems 2 Review of Systems: CONSTITUTIONAL: Denies fever, chills, or sweats. EYES: Denies visual changes, redness, or discharge. ENT: Denies rhinorrhea, congestion, sore throat, or otalgia. CARDIOVASCULAR: Denies chest pain, palpitations, or edema. RESPIRATORY: Denies cough or dyspnea. GASTROINTESTINAL: Denies abdominal pain, nausea, vomiting, or diarrhea. GENITOURINARY: Denies dysuria or hematuria. SKIN: Denies rash or itching. Positive for mass. MUSCULOSKELETAL: Denies back pain, joint pain, or myalgia. Positive for left buttocks pain. NEUROLOGIC: Denies headache, numbness, or weakness. PSYCHIATRIC: Denies anxiety or depression. All other systems reviewed are negative, except as documented in HPI. [facility] Past Medical History Medical History Patient denies medical problems Surgical History Surgical History No pertinent past surgical history Social History Social History Smoking status: Never smoker Alcohol intake: current Alcohol use details: socially Substance use: current Substance use type: marijuana Lack of Transportation: No Lack of Food: Never True Current Housing: I Have Housing Concerned About Future Housing: No Difficulty Paying Gas/Electric Bills: No Difficulty Paying for Meds: No Currently Unemployed: No Education: High School Diploma/GED Difficulty w/ Childcare or Family Care: No Spiritual care concerns: No Comments At the time of my signature, I reviewed and agree with the nursing past medical, surgical, social, and family history. There is no relevant family history pertinent to the patient complaint. Exam 2 Narrative: GENERAL: This is a well-nourished, well-developed adult, in no apparent distress. They are non ill-appearing, nontoxic appearing. HEAD: normocephalic, atraumatic. EYES: Sclera clear/white. Conjunctiva normal. Vision is grossly intact. Extraocular movements intact EARS: External ears normal, Hearing grossly intact. NOSE: External nose normal THROAT: Mucous membranes moist, NECK: Neck supple, CARDIOVASCULAR: Regular rate and rhythm RESPIRATORY: Respiratory rate normal, respiratory effort nonlabored, no respiratory distress SKIN: warm, Dry, intact with no suspicious lesions or rash, good texture and turgor. NEURO: awake, alert, and oriented to person, place and time. There were no obvious focal neurologic abnormalities. EXTREMITIES: Left buttocks: Firm tender mass present to the left lower buttocks. No redness or swelling present. No area of fluctuance, no induration. No drainage. Pedal pulse 2 +and palpable. Neurovascular status intact distal to the mass. No redness, swelling, pain, drainage to the rectum. BACK: Nontender without deformity. No CVA tenderness. Course Course Emergency Course: Portions of this record may have been created with voice recognition software Vital Signs Vital signs: Vital Signs Temperature 97.3 F L 01/26/25 08:17 Pulse Rate 84 01/26/25 08:17 Respiratory Rate 16 01/26/25 08:17 Blood Pressure 133/79 01/26/25 08:17 Pulse Oximetry 100 01/26/25 08:17 Oxygen Delivery Room Air 01/26/25 08:17 Temperature 97.2 F L 01/27/25 04:41 Pulse Rate 80 01/27/25 04:41 Respiratory Rate 17 01/27/25 04:41 Blood Pressure 155/73 H 01/27/25 04:41 Pulse Oximetry 98 01/27/25 04:41 Oxygen Delivery Room Air 01/26/25 20:15 Reviewed MDM - Extremity Injury (Lower) MDM Narrative Medical decision making narrative: Palpable firm mass present to the left lower buttocks. Patient denies any falls or injuries. Possibly hematoma. Obtain lab work and imaging to further assess the mass. CBC with delta change hemoglobin however H and H stable. Chemistry unremarkable. Negative CRP. Radiology and reported the results to me via phone stating CT of left lower extremity shows a mass of the left gluteal region cannot exclude malignancy. Could possibly be hematoma versus malignancy cannot exclude hemorrhage due to increased enhancement of the inferior soft tissue margin likely soft tissue enhancement. No acute arterial abnormality of the left leg. Patient only denies falling or having injury any injuries to his left lower buttocks. No evidence of bruising, redness, swelling, or signs of infection noted. Neurovascular status intact distal to the mass. Stable hemoglobin and hematocrit. This is been going on for the last 2 weeks if not longer patient states, it is unlikely that the patient is hemorrhaging. Called Dr. Martell hospitalist to discuss the case with the patient recommended admission for further evaluation and imaging. Hospitalist recommend getting ortho or surgery on board possible for draining or biopsy to assess for malignancy. Spoke with Dr. Peoples from ortho would recommends ortho oncologist such as Dr. Sharp from [facility] for further evaluation of the mass. Spoke with Dr. Obrien from surgery who has agreed to get on board on the case and will consult to patient and patient. Differential Diagnosis Differential diagnosis: Likely other (Hematoma, extravasation artery, mass) Lab Data Attestation: I reviewed the patient's lab results. 01/27/25 05:17 01/27/25 05:17 Labs: Lab Results 01/26/25 01/26/25 Range/Units 09:38 09:57 WBC 9.4 (4.5-10.0) K/mm3 RBC 4.67 (4.6-6.20) M/mm3 Hgb 13.2 L D (14.0-18.0) g/dL Hct 41.5 L (42.0-52.0) % MCV 88.9 (80-100) fl MCH 28.3 (26-34) pg MCHC 31.8 L (32-36) g/dl RDW 12.9 (11.5-14.5) % Plt Count 322 D (150-375) k/mm3 MPV 9.7 (7.4-10.4) fl Immature Gran % (Auto) 0.4 (0-0.5) % Neut % (Auto) 62.4 (45.5-73.1) % Lymph % (Auto) 22.4 (18.3-44.2) % [place] % (Auto) 9.8 H (2.6-8.5) % Eos % (Auto) 3.9 (0-4.4) % Baso % (Auto) 1.1 (0.2-1.2) % Lymph # (Auto) 2.10 (0.9-3.2) K/mm3 [place] # (Auto) 0.9 H (0.1-0.6) K/mm3 Eos # (Auto) 0.4 H (0-0.3) K/mm3 Baso # (Auto) 0.1 (0.0-0.1) K/mm3 Abs Immat Gran (auto) 0.04 H (0.00-0.031) K/mm3 Absolute Neuts (auto) 5.9 (1.3-6.7) K/mm3 Absolute Nucleated RBC 0.000 (0.0-0.012) K/mm3 Nucleated RBC % 0.0 (0.0-0.2) % Sodium 138 (137-145) mmol/L Potassium 4.3 (3.4-5.0) mmol/L Chloride 104 (98-107) mmol/L Carbon Dioxide 28 (22-30) mmol/L Anion Gap 6 (4-12) mmol/L BUN 7 L D (9-20) mg/dL Creatinine 0.80 0.90 (0.7-1.3) mg/dL Estim Creat Clear Calc 131 118 ml/min Estimated GFR > 60 > 60 (59 - ) Glucose 107 (65-110) mg/dL Calcium 8.8 (8.4-10.2) mg/dL Total Bilirubin 0.2 (0.2-1.3) mg/dL AST 29 (17-59) U/L ALT 26 (6-50) U/L Alkaline Phosphatase 119 (38-126) U/L Total Creatine Kinase 97 (55-170) U/L Total Protein 7.3 (6.3-8.2) g/dL Albumin 4.1 (3.5-5.1) g/dL Imaging Data Radiologist's impression: ITS Impressions Lower Extremity CTA 01/26/25 10:07 IMPRESSION: 1. Left gluteus muscle large lesion worrisome for mass, hematoma considered less likely but possible. 2. Active bleed along inferior margin not excluded, though felt to be peripheral soft tissue enhancement. 3. No acute arterial abnormality left leg. Critical Care Time Critical Care Time Critical Care Time: No Discharge Plan Discharge Clinical Impression: Mass of buttock Patient Disposition: Still a Patient Condition: Stable Time of Disposition: 11:15
--- NOTE | 2025-01-26 12:07 | P.CONGS_ITS ---
Assessment and Plan Assessment and plan (1) Mass of buttock: Code(s): R22.2 - Localized swelling, mass and lump, trunk Status: Acute Assessment and Plan: * The patient has a large left buttock mass that has been gradually increasing in size over the past 6-7 months. He has had difficulty with having outpatient workup due to issues with insurance. He presented today due to worsening left buttock pain that became uncontrolled last night. CTA left lower extremity showed a large left gluteal mass. Although hematoma is on the differential, this seems less likely after examining the lesion and with his presentation without any related trauma or anticoagulation. Other differentials would include other benign or malignant neoplasms. The Hospitalist is admitting the patient and we will defer further workup to the Hospitalist service. We will follow along peripherally for results to determine if there are any surgical needs. (2) Left buttock pain: Code(s): M79.18 - Myalgia, other site Status: Acute Assessment and Plan: * This is the reason for his presentation to the ER. He describes pain in his left buttock centrally at the mass with a sciatic-like shooting sharp and tingling pain down his left leg. Plan I have discussed the patient's case and plan of care with Dr. Obrien. History of Present Illness Consult details Consult date: 01/26/25 Reason for consult: other (Left buttock mass) Requesting physician: Jun Martell MD Narrative: This is a 29-year-old male with no known past medical history, who we have been asked to see in surgical consultation for a left gluteal mass. He reports a gradual increase in size of a small mass on his left buttock for the past 6-7 months. He reports first noticing it about 7 months ago when he sat down in his brother's car. He felt like he sat on something, and felt a bump. At that time, he reports that it was the size of a golf ball. Over the next few months, the mass had slowly enlarged. It eventually started causing pain in is left buttock. More recently, he has noticed intermittent numbness in his left leg. He has developed a sciatic-like pain shooting down his left leg. Due to his progressive symptoms, he went to see his PCP for this problem and they attempted to order imaging as an outpatient. There has been issues with insurance and his imaging was rescheduled for next week. This pain has progressively become worse and was unbearable last night, therefore it prompted him to come into the ED for evaluation. Labs were unremarkable with a normal white blood cell count. CTA of the left lower extremity showed a large left gluteus muscle lesion worrisome for mass, hematoma considered less likely but possible. Active bleed along inferior margin not excluded, though felt to be peripheral soft tissue enhancement. No acute arterial abnormality of the left leg. He is being admitted by the hospitalist for further workup of the left gluteal mass. Our service has been consulted and he is now seen in the ED. Review of Systems 2 Review of Systems: All systems reviewed & are unremarkable except as noted in HPI and below PMFSH Past Medical History Medical History Patient denies medical problems Surgical History Surgical History No pertinent past surgical history Social History Social History Smoking status: Never smoker Alcohol use details: socially Substance use type: marijuana Meds Home Medications and Allergies Home Medications ?Medication ?Instructions ?Recorded ?Confirmed ?Type ondansetron 4 mg disintegrating 4 mg PO Q6H PRN nausea and 07/24/24 Rx tablet vomiting #14 tabs Allergies Allergy/AdvReac Type Severity Reaction Status Date / Time No Known Allergies Allergy Verified 01/26/25 08:33 Vital Signs Vital Signs - 24 hr 01/26/25 08:17 Temperature 97.3 F L Pulse Rate 84 Respiratory Rate 16 Blood Pressure 133/79 Pulse Oximetry 100 Oxygen Delivery Room Air Exam 2 Const: General: comfortable and no acute distress Nutritional Appearance: a verage body habitus Orientation/consciousness: patient oriented x3 HENMT: Head: normocephalic and atraumatic Ears: hearing grossly normal bilaterally Mouth: Yes moist mucous membranes Eyes: General: appearance normal, both eyes and all related structures P upils: Equal, round and reactive pupils present Neck: Neck: normal visual inspection and full ROM Resp: Effort & Inspection: no respiratory distress Auscultation: clear to auscultation bilaterally Cardio: Rate: regular rate Rhythm: regular rhythm Peripheral pulses: P eripheral pulses 2+ throughout GI: Inspection: non-distended GI Palp: Yes Soft to palpation, No Tenderness to palpation present (GI), No Guarding due to palpation present (GI) and No Rebound tenderness present Auscultation: normal bowel sounds Skin: General skin exam: normal color Other: Large 8-9 cm left buttock mass with irregularly-shaped borders, slightly mobile, and slightly soft, but not firm nor fluctuant. Overlying skin appears normal in color with an uneven lobular surface with no bruising, no abnormal visible lesions or discoloration of the skin, and no redness or warmth. Neuro: General: moves all extremities and no focal motor deficits Speech: n ormal speech Motor exam (neuro): 5/5 motor strength present throughout Extrem: General: normal to inspection and no edema Left lower extremity: h ip/thigh Details: normal to inspection, knee Details: normal to inspection, lower leg Details: normal to inspection, ankle Details: normal to inspection and foot Details: normal to inspection, no edema and vascular exam Details: dorsalis pedis pulse present, posterior tibial pulse present and normal capillary refill Psych: Mental Status: mental status grossly normal Attitude: cooperative Insight: Good insight present (Psych) Judgement: Good judgement present (Psych) Results Labs 01/26/25 09:38 01/26/25 09:57 Labs: Abnormal lab results 01/26/25 Range/Units 09:38 Hgb 13.2 L D (14.0-18.0) g/dL Hct 41.5 L (42.0-52.0) % MCHC 31.8 L (32-36) g/dl Carver % (Auto) 9.8 H (2.6-8.5) % Carver # (Auto) 0.9 H (0.1-0.6) K/mm3 Eos # (Auto) 0.4 H (0-0.3) K/mm3 Abs Immat Gran (auto) 0.04 H (0.00-0.031) K/mm3 BUN 7 L D (9-20) mg/dL Diabetes panel 01/26/25 01/26/25 Range/Units 09:38 09:57 Sodium 138 (137-145) mmol/L Potassium 4.3 (3.4-5.0) mmol/L Chloride 104 (98-107) mmol/L Carbon Dioxide 28 (22-30) mmol/L BUN 7 L D (9-20) mg/dL Creatinine 0.80 0.90 (0.7-1.3) mg/dL Glucose 107 (65-110) mg/dL Calcium 8.8 (8.4-10.2) mg/dL AST 29 (17-59) U/L ALT 26 (6-50) U/L Alkaline Phosphatase 119 (38-126) U/L Total Protein 7.3 (6.3-8.2) g/dL Albumin 4.1 (3.5-5.1) g/dL Calcium panel 01/26/25 Range/Units 09:38 Calcium 8.8 (8.4-10.2) mg/dL Albumin 4.1 (3.5-5.1) g/dL Pituitary panel 01/26/25 01/26/25 Range/Units 09:38 09:57 Sodium 138 (137-145) mmol/L Potassium 4.3 (3.4-5.0) mmol/L Chloride 104 (98-107) mmol/L Carbon Dioxide 28 (22-30) mmol/L BUN 7 L D (9-20) mg/dL Creatinine 0.80 0.90 (0.7-1.3) mg/dL Glucose 107 (65-110) mg/dL Calcium 8.8 (8.4-10.2) mg/dL Adrenal panel 01/26/25 01/26/25 Range/Units 09:38 09:57 Sodium 138 (137-145) mmol/L Potassium 4.3 (3.4-5.0) mmol/L Chloride 104 (98-107) mmol/L Carbon Dioxide 28 (22-30) mmol/L BUN 7 L D (9-20) mg/dL Creatinine 0.80 0.90 (0.7-1.3) mg/dL Glucose 107 (65-110) mg/dL Calcium 8.8 (8.4-10.2) mg/dL Total Bilirubin 0.2 (0.2-1.3) mg/dL AST 29 (17-59) U/L ALT 26 (6-50) U/L Alkaline Phosphatase 119 (38-126) U/L Total Protein 7.3 (6.3-8.2) g/dL Albumin 4.1 (3.5-5.1) g/dL All other labs normal. Imaging Additional studies: ITS Impressions Lower Extremity CTA 01/26/25 10:07 IMPRESSION: 1. Left gluteus muscle large lesion worrisome for mass, hematoma considered less likely but possible. 2. Active bleed along inferior margin not excluded, though felt to be peripheral soft tissue enhancement. 3. No acute arterial abnormality left leg.
[2025-01-26 12:39] VITALS: BP 137/95; PULSE 72; RESP 18; O2SAT 100
[2025-01-26 13:03] VITALS: BMI 29.1
--- NOTE | 2025-01-26 13:04 | ADMGEN ---
This patient, Facundo Bashir, was admitted to 3 [facility] S[facility] Room 312-01. Patient/family oriented to hospital policies and general routines including ID bracelet, bed and alarms, visiting hours, pain management, procedures, bathroom and other care routines, personal items, smoking policy, room service/diet, and visiting hours. Information on how to activate the Rapid Response Team has been discussed. Patient/Family are encouraged to report perceived risks to care and to ask questions if they do not understand what they are told or what they should do.
[2025-01-26] MEDS: HYDROcodone/acetaminophen (*CRX) 5-325 MG TABLET 1 TAB PO ×2 (13:31→20:07)
[2025-01-26 13:40] VITALS: BP 152/101; PULSE 91; RESP 14; TEMP 36.1; O2SAT 98
[2025-01-26 19:40] VITALS: BP 142/82; PULSE 80; RESP 16; TEMP 36.2; O2SAT 99
[2025-01-26] MEDS: ONDANSETRON HCL ODT 4 MG TABLET PO (20:07)
[2025-01-26 20:15] VITALS: O2SAT 99
[2025-01-27 04:41] VITALS: BP 155/73; PULSE 80; RESP 17; TEMP 36.2; O2SAT 98
[2025-01-27 06:23] LABS: Hematocrit 45.1 % (42.0-52.0); Hemoglobin 14.4 g/dL (14.0-18.0); Immature Granulocyte Percent A 0.3 % (0-0.5); Lymphocytes Absolute Auto 2.21 K/mm3 (0.9-3.2); Mean Corpuscular HGB Conc 31.9 g/dl (32-36); Mean Corpuscular Hemoglobin 28.2 pg (26-34); Mean Corpuscular Volume 88.4 fl (80-100); Nucleated Red Blood Cells Absolute Auto 0.000 K/mm3 (0.0-0.012); Nucleated Red Blood Cells Perc 0.0 % (0.0-0.2); Platelet Count Result 358 k/mm3 (150-375); Red Blood Count 5.10 M/mm3 (4.6-6.20); White Blood Count 9.7 K/mm3 (4.5-10.0)
[2025-01-27 06:51] LABS: Alanine Aminotransferase 31 U/L (6-50); Albumin Level 4.3 g/dL (3.5-5.1); Alkaline Phosphatase 153 U/L (38-126); Anion Gap 11 mmol/L (4-12); Aspartate Amino Transferase 31 U/L (17-59); Bilirubin,Total 0.7 mg/dL (0.2-1.3); Blood Urea Nitrogen 9 mg/dL (9-20); CRP 4.6 mg/dL (<1.0); Calcium 9.1 mg/dL (8.4-10.2); Carbon Dioxide 26 mmol/L (22-30); Chloride 102 mmol/L (98-107); Estimated CRCL calculation 115 ml/min; Estimated Glomerular Filt Rate > 60; Glucose 110 mg/dL (65-110); Potassium 4.1 mmol/L (3.4-5.0); Sodium 139 mmol/L (137-145); Total Protein 8.0 g/dL (6.3-8.2)
[2025-01-27] MEDS: HYDROcodone/acetaminophen (*CRX) 5-325 MG TABLET 1 TAB PO (10:16)
[2025-01-27] MEDS: ONDANSETRON HCL ODT 4 MG TABLET PO (10:18)
--- NOTE | 2025-01-27 11:26 | PM.IMHP ---
H&P: HPI History of Present Illness Date/Time: 01/27/25 11:26 Chief Complaint: Extremity Injury, Lower Narrative: ER-HPI Narrative: 29-year-old male presents [facility] complaining of left lower buttocks pain for approximately 2 weeks. Patient said today's developed shooting pain down his left leg. Patient denies any injuries or falls to his left bottom. Patient reports feeling a firm mass to his left lower buttocks. Patient denies any back pain, redness, swelling, drainage, fevers, bites, chills, nausea vomiting,. Patient tried to get this workup done outpatient through his PCP but his insurance declined imaging. Patient denies any significant past medical patient presented with c/o left lower extremity for sometime and the pain was worst, to further evaluate patient had CTA of lower extremity which showed left gluteus muscle large lesion worrisome for mass, hematoma considered less likely but possible. Will consult general surgery for further recommendation, will monitor and follow. Review of Systems Review of Systems: All systems reviewed & are unremarkable except as noted in HPI and below PMFSH Past Medical History Medical History Patient denies medical problems Surgical History Surgical History No pertinent past surgical history Social History Social History Smoking status: Never smoker Alcohol intake: current Alcohol use details: socially Substance use: current Substance use type: marijuana Lack of Transportation: No Lack of Food: Never True Current Housing: I Have Housing Concerned About Future Housing: No Difficulty Paying Gas/Electric Bills: No Difficulty Paying for Meds: No Currently Unemployed: No Education: High School Diploma/GED Difficulty w/ Childcare or Family Care: No Spiritual care concerns: No Meds Home Medications and Allergies Home Medications ?Medication ?Instructions ?Recorded ?Confirmed ?Type ondansetron 4 mg disintegrating 4 mg PO Q6H PRN nausea and 07/24/24 01/26/25 Rx tablet vomiting #14 tabs Allergies Allergy/AdvReac Type Severity Reaction Status Date / Time No Known Allergies Allergy Verified 01/26/25 13:06 Vital Signs Vital Signs - 24 hr 01/26/25 12:39 01/26/25 13:40 01/26/25 19:40 Temperature 36.1 C L 36.2 C L Pulse Rate 72 91 80 Respiratory Rate 18 14 16 Blood Pressure 137/95 H 152/101 H 142/82 H Pulse Oximetry 100 98 99 Oxygen Delivery 01/26/25 20:15 01/27/25 04:41 Temperature 36.2 C L Pulse Rate 80 Respiratory Rate 17 Blood Pressure 155/73 H Pulse Oximetry 99 98 Oxygen Delivery Room Air Exam Narrative: Patient is comfortable, NAD HEENT: eyes are clear and none icteric LUNGS:CTA HEART: RR S1S2 ABD: BS+, Soft and nontender Lower extremities: no edema SKIN: nonjaundiced Neuro: grossly intact. H&P: Results Labs Labs: Short CBC 01/27/25 Range/Units 05:17 WBC 9.7 (4.5-10.0) K/mm3 Hgb 14.4 (14.0-18.0) g/dL Hct 45.1 (42.0-52.0) % Plt Count 358 (150-375) k/mm3 BMP 01/27/25 05:17 Sodium 139 Potassium 4.1 Chloride 102 Carbon Dioxide 26 BUN 9 Creatinine 0.92 Glucose 110 Calcium 9.1 Liver Function 01/27/25 Range/Units 05:17 Total Bilirubin 0.7 (0.2-1.3) mg/dL AST 31 (17-59) U/L ALT 31 (6-50) U/L Alkaline Phosphatase 153 H (38-126) U/L Albumin 4.3 (3.5-5.1) g/dL Assessment and Plan Assessment and plan (1) Mass of buttock: Code(s): R22.2 - Localized swelling, mass and lump, trunk Status: Acute (2) Left buttock pain: Code(s): M79.18 - Myalgia, other site Status: Acute Plan patient presented with c/o left lower extremity for sometime and the pain was worst, to further evaluate patient had CTA of lower extremity which showed left gluteus muscle large lesion worrisome for mass, hematoma considered less likely but possible. Will consult general surgery for further recommendation, will monitor and follow.
--- NOTE | 2025-01-27 12:03 | P.PNGS_ITS ---
Progress Note: A&P Assessment and Plan (1) Mass of buttock: Code(s): R22.2 - Localized swelling, mass and lump, trunk Status: Acute Assessment and Plan: * The patient has a large left buttock mass that has been gradually increasing in size over the past 6-7 months. LLE CTA showed a large left gluteal mass. MRI this morning showed a 13.6 x 7.3 x 6.6 cm intramuscular mass within the left gluteus lela muscle consistent with a neoplasm, highly concerning for malignancy although differential would include benign neoplasm such as schwannoma or peripheral nerve sheath tumor. We will refer the patient to [facility]. I discussed MRI findings and recommendation for referral with the patient this morning. He is stable from our standpoint to discharge if his pain is well controlled to follow-up with surg onc as an outpatient. We will sign off at this time. (2) Left buttock pain: Code(s): M79.18 - Myalgia, other site Status: Acute Assessment and Plan: * Pain related to the left gluteal mass. Seems controlled with oral analgesics. Plan I have discussed the patient's case and plan of care with Dr. Obrien. Subjective Subjective Date/Time Seen: 01/27/25 12:03 Patient reports: no new complaints Interval history: Still having pain in his left buttock but well controlled with hydrocodone. No acute issues overnight. MRI done this morning and showing findings concerning for neoplasm. Exam Const: General: comfortable and no acute distress Skin: Other: Large left buttock mass unchanged from yesterday Objective Data Vital Signs Vital Signs: Vital Signs - 24 hr 01/26/25 12:39 01/26/25 13:40 01/26/25 19:40 Temperature 96.9 F L 97.2 F L Pulse Rate 72 91 80 Respiratory Rate 18 14 16 Blood Pressure 137/95 H 152/101 H 142/82 H Pulse Oximetry 100 98 99 Oxygen Delivery 01/26/25 20:15 01/27/25 04:41 Temperature 97.2 F L Pulse Rate 80 Respiratory Rate 17 Blood Pressure 155/73 H Pulse Oximetry 99 98 Oxygen Delivery Room Air Intake/Output Intake/Output: Intake & Output 01/24/25 01/25/25 01/26/25 01/27/25 23:59 23:59 23:59 23:59 Intake Total 100 350 Balance 100 350 Meds/Results Medications: Active Medications Generic Name Dose Route Start Last Admin Trade Name Freq PRN Reason Stop Dose Admin Acetaminophen 650 mg 01/26/25 13:20 Acetaminophen 325 Mg Tablet PO Q6H PRN Mild Pain (1-3) or Fever Hydrocodone Bitart/Acetaminophen 1 tab 01/26/25 13:20 01/27/25 10:16 Hydrocodone/Acetaminophen (*Crx) 5-325 Mg Tablet PO 1 tab Q6H PRN Administration Pain Rated 4-6 Docusate Sodium 100 mg 01/26/25 13:20 Docusate Sodium 100 Mg Capsule PO Q12H PRN Constipation Morphine Sulfate 2 mg 01/26/25 13:21 Morphine Sulfate (*Crx) 2 Mg/Ml Inj IV PUSH Q4H PRN Pain Rated 7-10 Ondansetron HCl 4 mg 01/26/25 13:20 01/27/25 10:18 Ondansetron Hcl Odt 4 Mg Tablet PO 4 mg Q6H PRN Administration Nausea And Vomiting Radiology Results: ITS Impressions Lower Extremity CTA 01/26/25 10:07 IMPRESSION: 1. Left gluteus muscle large lesion worrisome for mass, hematoma considered less likely but possible. 2. Active bleed along inferior margin not excluded, though felt to be peripheral soft tissue enhancement. 3. No acute arterial abnormality left leg. Pelvis MRI 01/27/25 09:31 IMPRESSION: 1. 13.6 x 7.3 x 6.6 cm heterogeneously enhancing intramuscular mass within the left gluteus lela muscle belly at the inferior left buttock consistent with neoplasm, highly concerning for malignancy although differential would include benign neoplasm such as schwannoma or peripheral nerve sheath tumor. Recommend orthopedic oncology consultation Labs Labs: Laboratory Results - last 24 hr 01/26/25 01/27/25 20:22 05:17 WBC 9.7 RBC 5.10 Hgb 14.4 Hct 45.1 MCV 88.4 MCH 28.2 MCHC 31.9 L RDW 12.8 Plt Count 358 MPV 10.2 Immature Gran % (Auto) 0.3 Neut % (Auto) 62.6 Lymph % (Auto) 22.9 Edgar % (Auto) 10.7 H Eos % (Auto) 2.7 Baso % (Auto) 0.8 Lymph # (Auto) 2.21 Edgar # (Auto) 1.0 H Eos # (Auto) 0.3 Baso # (Auto) 0.1 Abs Immat Gran (auto) 0.03 Absolute Neuts (auto) 6.0 Absolute Nucleated RBC 0.000 Nucleated RBC % 0.0 Sodium 139 Potassium 4.1 Chloride 102 Carbon Dioxide 26 Anion Gap 11 BUN 9 Creatinine 0.92 Estim Creat Clear Calc 115 Estimated GFR > 60 Glucose 110 Calcium 9.1 Total Bilirubin 0.7 AST 31 ALT 31 Alkaline Phosphatase 153 H Lactate Dehydrogenase 161 C-Reactive Protein 4.6 H Total Protein 8.0 Albumin 4.3
--- NOTE | 2025-01-27 12:39 | P.DS_ITS ---
DS: Admitting Diagnosis Discharge Date 01/27/25 Admitting Diagnosis Extremity Injury, Lower DS: Discharge Diagnosis Discharge Diagnosis (1) Mass of buttock: Code(s): R22.2 - Localized swelling, mass and lump, trunk Status: Acute (2) Left buttock pain: Code(s): M79.18 - Myalgia, other site Status: Acute Plan patient presented with c/o left lower extremity for sometime and the pain was worst, to further evaluate patient had CTA of lower extremity which showed left gluteus muscle large lesion worrisome for mass, hematoma considered less likely but possible. Will consult general surgery for further recommendation, will monitor and follow. DS: Summary Hospital Course Hospital Course: patient presented with c/o left lower extremity for sometime and the pain was worst, to further evaluate patient had CTA of lower extremity which showed left gluteus muscle large lesion worrisome for mass, hematoma considered less likely but possible. Will consult general surgery for further recommendation, will monitor and follow. I have already sent images to [facility] and Dr. Obrien will consult oncology surgeon at the hospital, patient family present and agreeable with plan. Time Spent with Patient Time attestation: Total time spent providing and/or coordinating discharge services: Exam Narrative: Patient is comfortable, NAD HEENT: eyes are clear and none icteric LUNGS:CTA HEART: RR S1S2 ABD: BS+, Soft and nontender Lower extremities: no edema SKIN: nonjaundiced Neuro: grossly intact. DS: Data Data Completed and Pending Labs on day of discharge: Labs from last 24 hours 01/27/25 01/26/25 05:17 20:22 WBC 9.7 RBC 5.10 Hgb 14.4 Hct 45.1 MCV 88.4 MCH 28.2 MCHC 31.9 L RDW 12.8 Plt Count 358 MPV 10.2 Immature Gran % (Auto) 0.3 Neut % (Auto) 62.6 Lymph % (Auto) 22.9 Kingfisher % (Auto) 10.7 H Eos % (Auto) 2.7 Baso % (Auto) 0.8 Lymph # (Auto) 2.21 Kingfisher # (Auto) 1.0 H Eos # (Auto) 0.3 Baso # (Auto) 0.1 Abs Immat Gran (auto) 0.03 Absolute Neuts (auto) 6.0 Absolute Nucleated RBC 0.000 Nucleated RBC % 0.0 Sodium 139 Potassium 4.1 Chloride 102 Carbon Dioxide 26 Anion Gap 11 BUN 9 Creatinine 0.92 Estim Creat Clear Calc 115 Estimated GFR > 60 Glucose 110 Calcium 9.1 Total Bilirubin 0.7 AST 31 ALT 31 Alkaline Phosphatase 153 H Lactate Dehydrogenase 161 C-Reactive Protein 4.6 H Total Protein 8.0 Albumin 4.3 CA 125 Antigen Pending Discharge Plan Discharge Attending physician on discharge: Jun Martell Consulting providers: Ashwin Hilton; Grant Obrien Discharging Clinician: Jun Martell Patient Disposition: Home Activity: as tolerated Diet: heart healthy Discharge Instructions: * We will refer you to Surgical Oncology at [facility]. If you do not hear from [facility] office or our office by mid next week, then please call ([phone]). * Take the disc with your imaging (MRI and CT scan) to your appointment with Surgical Oncology. * * Patient to follow discharge care instruction from his surgeon and follow up as schedule, patient to follow up his primary care provider as soon as possible, patient is instructed if any symptoms worsen to go to nearest ER. Patient Instructions: Antibiotic Form Patient Language: Turkmen Stand Alone Forms: General Discharge Information Follow-up/Referrals: PHYSICIAN,COMPOSING ROOM MACHINIST APPRENTICE [Primary Care Provider, Internal Medicine] Grant Obrien MD [Physician, General Surgery] Discharge Medications: New hydrocodone-acetaminophen 5-325 mg Tablet 1 tablet PO Q6H PRN (Reason: Pain Rated 4-6) Qty: 15 0RF docusate sodium 100 mg Capsule 100 mg PO Q12H PRN (Reason: Constipation) Qty: 14 0RF Continued ondansetron 4 mg tablet,disintegrating 4 mg PO Q6H PRN (Reason: nausea and vomiting) Qty: 14 0RF Date of admission: 01/26/25 11:43 Primary Care Provider: PHYSICIAN,COMPOSING ROOM MACHINIST APPRENTICE Admitting Provider: Jun Martell Attending physician on admission: Jun Martell Condition: Stable
== END 2025-01-27 14:35 | disposition home or self-care (01) ==
LOC: ANHED 09:21 → ANH3MEDSUR 12:38
PROVIDERS: Nurse Practitioner; Student in an Organized Health Care Education/Training Program; Admitting Provider Family Medicine; PCP Family Medicine; Visit Provider Family Medicine
DX: R22.2 Localized swelling, mass and lump, trunk (principal); M79.18 Myalgia, other site; F12.90 Cannabis use, unspecified, uncomplicated
CPT/HCPCS: 36415; 72197; 73706; 80053; 82550; 83615; 85025; 86140; 86304; 99285; A9270; A9577; G0378; Q9967